=== PATIENT | male | born 1995 | race Two or more races ===

== ENCOUNTER 2017-12-23 22:49 | Inpatient (IN) | payer OTHER ==
--- NOTE | 2017-12-23 23:04 | ER Report ---
History and Physical Time Seen By MD: 23:04 Hx. of Stated Complaint: PT HAS FEVER, AUDIBLE CRACKLES, SOB. HPI/ROS CHIEF COMPLAINT: fever, trouble breathing HISTORY OF PRESENT ILLNESS: This is a 22 year old male. He has been sick for about 4 days. Started with fever, then cough and shortness of breath. Feels very week. Having pink sputum tonight. Heart racing. No chest pain, but tight breathing. Took Tylenol this morning, but none recently. No sick contacts. No travel. No unusual exposures. 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 No history of lung problems or infections. REVIEW OF SYSTEMS: Constitutional: As above. Eyes: No vision changes. ENT: Mild sore throat. Some nasal congestion. Cardiovascular: No chest pain. Respiratory: As above. Gastrointestinal: No abdominal pain. Some nausea. No diarrhea or constipation. No blood in stool. Genitourinary: No dysuria or blood in urine. Musculoskeletal: Having some musculoskeletal aches. Skin: No rashes. Neurological: No numbness. Has some dizziness. Allergies: Coded Allergies: No Known Drug Allergies (Unverified , 12/23/17) Home Meds No Active Prescriptions or Reported Meds Past Medical/Surgical History Negative Reviewed Nurses Notes: Yes Hx Substance Use Disorder: No Hx Alcohol Use: No Constitutional Vital Sign - Last 24 Hours 12/23/17 12/23/17 12/23/17 12/23/17 22:54 22:58 23:00 23:04 Temp 102.7 Pulse 154 149 Resp 26 29 B/P (MAP) 148/98 (115) 148/98 129/88 (102) Pulse Ox 80 92 O2 Delivery Room Air 12/23/17 12/23/17 12/23/17 12/23/17 23:19 23:36 23:41 23:56 Pulse 145 149 146 Resp 37 44 39 B/P (MAP) 147/86 (106) Pulse Ox 92 86 93 12/24/17 12/24/17 12/24/17 12/24/17 00:00 00:11 00:26 00:30 Pulse 145 138 Resp 45 26 B/P (MAP) 141/94 (110) 136/102 (113) Pulse Ox 94 95 12/24/17 12/24/17 00:32 00:37 Pulse 138 139 Resp 38 Pulse Ox 95 Physical Exam General Appearance: The patient is alert. He is having some respiratory distress. Ill appearing and does appear toxic with tachycardia, tachypnea and fever. Eyes: Pupils are equal, round. No pallor, injection or icterus. ENT: Mucous membranes are moist. Normal oral mucosa. Posterior oropharynx is normal. Neck: Supple and non tender. No lymphadenopathy. Respiratory: Increased work of breathing. Breathing with loud wet rattling sounds even without auscultation. Auscultation reveals loud, wet rhonchi and rales. No wheezing. Hypoxia which improves with oxygen administration. Started at 80% on room air. Cardiovascular: Regular rate and rhythm. Difficult to hear heart sounds with loud breathing, but did not appreciate any murmurs, gallops or rubs. No edema. Gastrointestinal: Abdomen is soft and non tender. Nondistended. Normal active bowel sounds. Neurological: Alert and oriented x3. No focal neurologic deficits Skin: Warm and dry. Musculoskeletal: Full range of motion, no discrete tenderness. DIFFERENTIAL DIAGNOSIS: After history and physical exam, differential diagnosis was considered for shortness of breath including but not limited to sepsis, pulmonary infectious process, viral process such as influenza. Less likely cardiac problems. Medical Decision Making Data Points Result Diagram: 12/23/17 2310 12/23/17 2310 Laboratory Hematology Test 12/23/17 23:10 12/23/17 23:40 Red Blood Count 4.75 M/uL (4.00-5.60) Mean Corpuscular Volume 90.1 fL (80.0-96.0) Mean Corpuscular Hemoglobin 31.3 pg (26.0-33.0) Mean Corpuscular Hemoglobin Concent 34.8 g/dL (32.0-36.0) Red Cell Distribution Width 12.4 % (11.5-14.5) Mean Platelet Volume 7.7 fL (7.2-11.1) Neutrophils (%) (Auto) % (39.4-72.5) Lymphocytes (%) (Auto) % (17.6-49.6) Monocytes (%) (Auto) % (4.1-12.4) Eosinophils (%) (Auto) % (0.4-6.7) Basophils (%) (Auto) % (0.3-1.4) Nucleated RBC Relative Count (auto) /100WBC Neutrophils # (Auto) K/uL (2.0-7.4) Lymphocytes # (Auto) K/uL (1.3-3.6) Monocytes # (Auto) K/uL (0.3-1.0) Eosinophils # (Auto) K/uL (0.0-0.5) Basophils # (Auto) K/uL (0.0-0.1) Nucleated RBC Absolute Count (auto) K/uL Neutrophils % (Manual) 73 % (39.4-72.5) Band Neutrophils % 8 % Lymphocytes % (Manual) 3 % (17.6-49.6) Atypical Lymphocytes % 1 % Monocytes % (Manual) 13 % (4.1-12.4) Eosinophils % (Manual) 0 % (0.4-6.7) Basophils % (Manual) 0 % (0.3-1.4) Metamyelocytes % 1 % Myelocytes % 1 % Peripheral Blood Smear Yes Y/N Sodium Level 125 mmol/L (137-145) Potassium Level 3.3 mmol/L (3.5-5.0) Chloride Level 89 mmol/L (98-107) Carbon Dioxide Level 23 mmol/L (22-30) Blood Urea Nitrogen 8 mg/dl (9-21) Creatinine 0.90 mg/dl (0.66-1.25) Glomerular Filtration Rate Calc > 60.0 Random Glucose 221 mg/dl (75-110) Calcium Level 8.0 mg/dl (8.4-10.2) Total Bilirubin 1.1 mg/dl (0.2-1.3) Aspartate Amino Transf (AST/SGOT) 78 U/L (0-35) Alanine Aminotransferase (ALT/SGPT) 58 U/L (0-56) Alkaline Phosphatase 59 U/L (0-126) Total Protein 6.4 gm/dl (6.3-8.2) Albumin 3.5 g/dl (3.5-5.0) Urine Color Yellow Urine Clarity Clear Urine pH 6.0 pH (4.8-9.5) Urine Specific [place] 1.021 Urine Protein 100 mg/dL (NEGATIVE) Urine Glucose (UA) 500 mg/dL (NEGATIVE) Urine Ketones Negative mg/dL (NEGATIVE) Urine Blood Moderate (NEGATIVE) Urine Nitrite Negative (NEGATIVE) Urine Bilirubin Negative (NEGATIVE) Urine Urobilinogen 4.0 mg/dL (0.2-1.9) Urine Leukocyte Esterase Negative (NEGATIVE) Urine RBC None /HPF (0-2/HPF) Urine WBC 2 /HPF (0-5/HPF) Urine Squamous Epithelial Cells None /LPF (</=FEW) Urine Bacteria Negative /HPF (NONE-FEW) Urine Mucus None /HPF (NONE-FEW) Influenza Virus Type A (PCR) Positive (NEGATIVE) Influenza Virus Type B (PCR) Negative (NEGATIVE) Chemistry Test 12/23/17 23:10 12/23/17 23:40 White Blood Count 6.5 k/uL (4.5-11.0) Red Blood Count 4.75 M/uL (4.00-5.60) Hemoglobin 14.9 g/dL (14.0-18.0) Hematocrit 42.8 % (42.0-52.0) Mean Corpuscular Volume 90.1 fL (80.0-96.0) Mean Corpuscular Hemoglobin 31.3 pg (26.0-33.0) Mean Corpuscular Hemoglobin Concent 34.8 g/dL (32.0-36.0) Red Cell Distribution Width 12.4 % (11.5-14.5) Platelet Count 181 K/uL (150-450) Mean Platelet Volume 7.7 fL (7.2-11.1) Neutrophils (%) (Auto) % (39.4-72.5) Lymphocytes (%) (Auto) % (17.6-49.6) Monocytes (%) (Auto) % (4.1-12.4) Eosinophils (%) (Auto) % (0.4-6.7) Basophils (%) (Auto) % (0.3-1.4) Nucleated RBC Relative Count (auto) /100WBC Neutrophils # (Auto) K/uL (2.0-7.4) Lymphocytes # (Auto) K/uL (1.3-3.6) Monocytes # (Auto) K/uL (0.3-1.0) Eosinophils # (Auto) K/uL (0.0-0.5) Basophils # (Auto) K/uL (0.0-0.1) Nucleated RBC Absolute Count (auto) K/uL Neutrophils % (Manual) 73 % (39.4-72.5) Band Neutrophils % 8 % Lymphocytes % (Manual) 3 % (17.6-49.6) Atypical Lymphocytes % 1 % Monocytes % (Manual) 13 % (4.1-12.4) Eosinophils % (Manual) 0 % (0.4-6.7) Basophils % (Manual) 0 % (0.3-1.4) Metamyelocytes % 1 % Myelocytes % 1 % Peripheral Blood Smear Yes Y/N Glomerular Filtration Rate Calc > 60.0 Calcium Level 8.0 mg/dl (8.4-10.2) Total Bilirubin 1.1 mg/dl (0.2-1.3) Aspartate Amino Transf (AST/SGOT) 78 U/L (0-35) Alanine Aminotransferase (ALT/SGPT) 58 U/L (0-56) Alkaline Phosphatase 59 U/L (0-126) Total Protein 6.4 gm/dl (6.3-8.2) Albumin 3.5 g/dl (3.5-5.0) Urine Color Yellow Urine Clarity Clear Urine pH 6.0 pH (4.8-9.5) Urine Specific [place] 1.021 Urine Protein 100 mg/dL (NEGATIVE) Urine Glucose (UA) 500 mg/dL (NEGATIVE) Urine Ketones Negative mg/dL (NEGATIVE) Urine Blood Moderate (NEGATIVE) Urine Nitrite Negative (NEGATIVE) Urine Bilirubin Negative (NEGATIVE) Urine Urobilinogen 4.0 mg/dL (0.2-1.9) Urine Leukocyte Esterase Negative (NEGATIVE) Urine RBC None /HPF (0-2/HPF) Urine WBC 2 /HPF (0-5/HPF) Urine Squamous Epithelial Cells None /LPF (</=FEW) Urine Bacteria Negative /HPF (NONE-FEW) Urine Mucus None /HPF (NONE-FEW) Influenza Virus Type A (PCR) Positive (NEGATIVE) Influenza Virus Type B (PCR) Negative (NEGATIVE) Urinalysis Test 12/23/17 23:40 Urine Color Yellow Urine Clarity Clear Urine pH 6.0 pH (4.8-9.5) Urine Specific [place] 1.021 Urine Protein 100 mg/dL (NEGATIVE) Urine Glucose (UA) 500 mg/dL (NEGATIVE) Urine Ketones Negative mg/dL (NEGATIVE) Urine Blood Moderate (NEGATIVE) Urine Nitrite Negative (NEGATIVE) Urine Bilirubin Negative (NEGATIVE) Urine Urobilinogen 4.0 mg/dL (0.2-1.9) Urine Leukocyte Esterase Negative (NEGATIVE) Urine RBC None /HPF (0-2/HPF) Urine WBC 2 /HPF (0-5/HPF) Urine Squamous Epithelial Cells None /LPF (</=FEW) Urine Bacteria Negative /HPF (NONE-FEW) Urine Mucus None /HPF (NONE-FEW) Microbiology Microbiology Date/Time Source Procedure Growth Status 12/23/17 23:43 Sputum Gram Stain - Final Resulted 12/23/17 23:43 Sputum Sputum Culture Pending Resulted EKG/Imaging Imaging CHEST: Indication: Fever and hypoxia. Technique: Frontal and lateral views were obtained. Comparison: None. Skeletal and soft tissue structures: Intact and unremarkable. Heart and mediastinum: Within normal limits. Lung boles: There are ill-defined parenchymal opacities in both lower lung boles, left worse than right, compatible with acute pneumonia. No focal consolidation or volume loss is identified. Pleural spaces: There is no evidence of effusion or pneumothorax. Impression: There are ill-defined opacities in both lower lung boles, left worse than right, compatible with acute pneumonia. Report Dictated By: Onofre Garduno MD at 12/23/2017 11:45 PM ED Course/Re-evaluation Clinical Indication for ER IV: Hydration, IV Access ED Course After initial evaluation, it was clear that the patient was very sick. IV was started. He was started on oxygen. A liter of normal saline given. Tylenol 1000mg given oral dose. Patient slowly improving. Imaging as noted above with multifocal infiltrates in the bases, left worse than right. Influenza A was positive. Sodium very low at 125 and Potassium was 3.3. Lactate normal. White count normal but with slight left shift. Blood cultures obtained. Sputum culture and gram stain obtained as well. Started on Rocephin, Azithromycin, and Tamiflu. Second liter of normal saline started at 200cc/hr. Discussed with Dr. Kelley and admitted initially to the ICU. Decision to Disposition Date: Dec 24, 2017 Decision to Disposition Time: 00:24 Depart Departure Latest Vital Signs Vital Signs Date Time Temp Pulse Resp B/P (MAP) Pulse Ox O2 Delivery O2 Flow Rate FiO2 12/24/17 00:37 139 38 95 12/24/17 00:30 136/102 (113) 12/23/17 22:58 102.7 Room Air Impression: Primary Impression: Pneumonia Additional Impressions: Influenza A Hyponatremia Condition: Condition Unchanged Disposition: Admitted from ER New Scripts No Active Prescriptions or Reported Meds Problem Qualifiers Primary Impression: Pneumonia Pneumonia type: due to unspecified organism Laterality: bilateral Lung location: lower lobe of lung Qualified Codes: J18.1 - Lobar pneumonia, unspecified organism MARCUS FRANCISCO MD Dec 23, 2017 23:04
[2017-12-23 23:25] LABS: PLATELET COUNT, AUTOMATED 181 K/uL (150-450)
[2017-12-23] MEDS ORDERED: NS(*) 0.9% 1000 ML BAG 1,000 ML IV ONE (23:30)
[2017-12-23] MEDS ORDERED: ACETAMINOPHEN 500 MG TAB PO ONE (23:40)
--- NOTE | 2017-12-23 23:51 | RADIOLOGY IMAGING REPORT ---
FACILITY: [facility] - [place], [place] PATIENT NAME: Will Madison : 1995 MR: [id number] V: [id number] EXAM DATE: ORDERING PHYSICIAN: MARCUS FRANCISCO TECHNOLOGIST: Location: [facility] Patient: Will Madison : 1995 Visit/Account:[id number] Date of Sevice: 12/23/2017 CHEST: Indication: Fever and hypoxia. Technique: Frontal and lateral views were obtained. Comparison: None. Skeletal and soft tissue structures: Intact and unremarkable. Heart and mediastinum: Within normal limits. Lung boles: There are ill-defined parenchymal opacities in both lower lung boles, left worse than r ight, compatible with acute pneumonia. No focal consolidation or volume loss is identified. Pleural spaces: There is no evidence of effusion or pneumothorax. Impression: There are ill-defined opacities in both lower lung boles, left worse than right, compati ble with acute pneumonia. Report Dictated By: Onofre Garduno MD at 12/23/2017 11:45 PM Report E-Signed By: Onofre Garduno MD at 12/23/2017 11:47 PM WSN:[id number]
[2017-12-24] VITALS (19 sets, daily range): BP systolic 92–196; BP diastolic 49–136
[2017-12-24] MEDS ORDERED: AZITHROMYCIN(*) 500 MG 500 MG in NS(*) 0.9% 250 ML BAG 250 ML IVPB ONE (00:30)
[2017-12-24] MEDS ORDERED: OSELTAMIVIR PHOS 75 MG CAP PO ONE (00:30)
[2017-12-24] MEDS ORDERED: cefTRIAXone(*) 1 GM VIAL 1 GM in NS(*) 0.9% 100 ML ADDVANT BAG 100 ML IVPB ONE (00:30)
[2017-12-24] MEDS ORDERED: NS(*) 0.9% 1000 ML BAG 1,000 ML IV ONE (00:40)
[2017-12-24] MEDS ORDERED: INFLUENZA VIRUS VAC 0.5 ML SYR IM ONLY ONE (03:10)
[2017-12-24] MEDS ORDERED: ALBUTEROL 2.5 MG/3 ML NEB NEB PRN (03:10)
[2017-12-24] MEDS ORDERED: CODEINE SULFATE 30 MG TAB PO PRN (03:10)
--- NOTE | 2017-12-24 03:22 | History & Physical ---
History of Present Illness Chief Complaint Fever and shortness of breath History of Present Illness This patient presented to the emergency room complaining of fever and shortness of breath. He started to get sick 4 days ago and has progressively gotten worse. Over the last 24hrs he has also developed a cough productive of pink frothy sputum. History Problems: (1) No significant medical problems Home Meds No Active Prescriptions or Reported Meds Allergies: Coded Allergies: No Known Drug Allergies (Unverified , 12/23/17) Hx Alcohol Use: No Review of Systems All Systems Reviewed/Normal: Yes, Except as Noted Constitutional: Fever Respiratory: Shortness of Breath, Cough Exam Vital Signs Vital Signs Date Time Temp Pulse Resp B/P (MAP) Pulse Ox O2 Delivery O2 Flow Rate FiO2 12/24/17 01:43 4.0 12/24/17 01:40 99.3 12/24/17 01:37 128 93 12/24/17 01:30 120/83 (95) 12/24/17 00:37 38 12/23/17 22:58 Room Air Neuro: No Gross deficits Eyes: PERRLA Cardiovascular: Regular Rate and Rhythm Respiratory: Other (Crackles and rhochi bilateral.) GI: Abd Soft and Non-Tender Extremities: No Edema Integumentary: No Cyanosis Medical Decision Making Data Points Result Diagram: 12/23/17 2310 12/23/17 2310 EKG / Imaging Imaging Chest x-ray reviewed. Assessment and Plan Problems: (1) Bacterial pneumonia Assessment & Plan: He did present with fever and shortness of breath. His chest x-ray did show bilateral multifocal infiltrates. He has been started on empiric treatment with ceftriaxone and azithromycin. Blood and sputum cultures are pending. (2) Influenza A Status: Acute Assessment & Plan: He did test positive for influenza A. We have started him on Tamiflu. (3) Sepsis Assessment & Plan: He does have tachycardia and a bandemia. A lactate is pending. He received a bolus of fluids in the emergency room and we are running him on maintenance fluids. (4) Hyponatremia Status: Acute Assessment & Plan: He has been started on a saline infusion as above. Venous Thromboembolism Antithrombotics Is Pt On Any Antithrombotics?: No Exam Sepsis Risk: Possible Sepsis Risk PRISCILLA ESPARZA DO Dec 24, 2017 03:22
[2017-12-24] MEDS ORDERED: NS(*) 0.9% 1000 ML BAG 1,000 ML IV PRN (05:39)
[2017-12-24] MEDS ORDERED: ACETAMINOPHEN 500 MG TAB PO PRN (06:00)
--- NOTE | 2017-12-24 06:46 | RADIOLOGY IMAGING REPORT ---
FACILITY: [facility] PATIENT NAME: Will Madison : 1995 MR: [id number] V: [id number] EXAM DATE: ORDERING PHYSICIAN: PRISCILLA ESPARZA TECHNOLOGIST: Location: [facility] - [place] Patient: Will Madison : 1995 Visit/Account:[id number] Date of Sevice: 12/24/2017 CHEST SINGLE AP Indication: Shortness of breath.. Comparison: December 23, 2017. Findings: Heart size within normal limits. Multifocal perihilar opacities, progressed since prior exam. Mild bronchial wall thickening. No pneumothorax or pleural effusion. IMPRESSION: 1. Progressing multifocal pulmonary opacities concerning for multifocal pneumonia. Report Dictated By: Micah Gomez MD at 12/24/2017 6:42 AM Report E-Signed By: Micah Gomez MD at 12/24/2017 6:43 AM WSN:[id number]
[2017-12-24] MEDS ORDERED: KETAMINE HCL 500 MG/5 ML VIAL ONE (07:45)
[2017-12-24] MEDS ORDERED: SUCCINYLCHOL CHL 200MG/10ML VL IVP ONE (08:01)
[2017-12-24] MEDS ORDERED: MIDAZOLAM 50 MG/10 ML 1ML VIAL 100 MG in NS(*) 0.9% 100 ML BAG 80 ML IV PRN (08:08)
[2017-12-24] MEDS: PROPOFOL(*)1000 MG/100 ML VIAL 100 ML IV PRN ×3 (08:09→10:52)
--- NOTE | 2017-12-24 08:14 | ER Inpatient Procedure ---
Inpatient Procedure Procedure: Rapid sequence intubation. I was consult by Dr. Alyssa Frazier to come and evaluate the patient and the ICU who appears to be in acute respiratory failure. Patient was admitted last evening with pneumonia and influenza. He is currently on a trial of BiPAP but is breathing in excess of 40 times a minute with accessory muscle use and abdominal breathing. It is my opinion that the patient is in acute respiratory failure and requires secure her airway and intubation on a ventilator. Indication for the procedure was airway protection and respiratory failure]. The patient was preoxygenated with 100% oxygen by face mask. The patient was given the following IV medications: 120 mg of ketamine followed by 100 mg of succinylcholine. The patient was orally endotracheally intubated under direct visualization with a 8.0 ETT. Tracheal intubation was confirmed with misting on the tube; breath sounds were auscultated equally bilaterally; appropriate color change with [place] CO2 detector. ET tube secured at 26 cm at the teeth. Chest X-ray shows ETT in good position. The procedure was performed by myself. NU AKHTAR MD Dec 24, 2017 08:14
[2017-12-24] MEDS ORDERED: VANCOMYCIN(*) 1 GM VIAL 1 GM, VANCOMYCIN (*) 0.5 GM VIAL 0.2 GM in NS(*) 0.9% 250 ML BA... IVPB SCH (08:15)
[2017-12-24] MEDS ORDERED: MIDAZOLAM 2 MG/2 ML VIAL IVP ONE (08:17)
--- NOTE | 2017-12-24 08:39 | Miscellaneous Provider Note ---
Miscellaneous Provider Note Note Called to see patient with increased respiratory rate and O2 requirements. Patient's respiratory rate near 40. He was using accessory muscles to breath and was in significant respiratory distress. Repeat CXR showed worseing bilateral infiltrates compared with admission CXR. Discussed intubation with the patient and he was agreeable. Dr. Ramirez intubated the patient in ICU. ET tube adjusted and in good position. OG tube placed as well and is in good position also. Will call surgery for Central line. Currently able to oxygenate the patient. BP is fine. Heart rate is high due to need to adjust sedation and get him comfortable. NEDA CHOU MD Dec 24, 2017 08:39
[2017-12-24] MEDS ORDERED: OSELTAMIVIR PHOS 75 MG CAP PO SCH (09:00)
[2017-12-24] MEDS ORDERED: ORAL SUCTION/CHLORHX/SWAB KIT MT SCH ×2 (09:00)
--- NOTE | 2017-12-24 09:01 | RADIOLOGY IMAGING REPORT ---
FACILITY: [facility] PATIENT NAME: Will Madison : 1995 MR: [id number] V: [id number] EXAM DATE: ORDERING PHYSICIAN: NEDA CHOU TECHNOLOGIST: Location: [facility] - [place] Patient: Will Madison : 1995 Visit/Account:[id number] Date of Sevice: 12/24/2017 EXAMINATION: Portable AP Chest 12/24/2017 8:05 AM HISTORY: Intubated, OG tube. COMPARISON: 12/24/2017 FINDINGS: Cardiomediastinal contours: Interval intubation. Endotracheal tube tip is only about 1.5 cm above the han. Nasogastric tube also now in place with the tip injecting over the gastric antrum. Heart siz e is unchanged. Lungs and pleura: Extensive patchy bilateral pulmonary infiltrates with a fairly similar distribution , possibly mildly increased in density in the right base. No substantial effusion. Bones/soft tissues: Normal Cardiac leads are present. IMPRESSION: 1. Interval intubation. Endotracheal tube tip is only about 1.5 cm above the han. 2. Extensive bilateral pulmonary infiltrates are probably slightly worsened. Report Dictated By: Deyvi Benavidez MD at 12/24/2017 8:53 AM Report E-Signed By: Deyvi Benavidez MD at 12/24/2017 8:55 AM WSN:[id number]
[2017-12-24] MEDS ORDERED: NS 0.9% ONE (09:14)
[2017-12-24] MEDS ORDERED: NS(*) 0.9% 500 ML BAG 500 ML IV PRN (09:25)
[2017-12-24] MEDS ORDERED: ACETAMINOPHEN(*)1000 MG/100 ML 100 ML IVPB PRN (09:35)
--- NOTE | 2017-12-24 09:39 | Procedure Note ---
Central Line Procedure Note Indication for Central Line: IV fluids, IV medications Consent Signed: Yes Central Line Lumen: Triple Central Line Procedure: Chlorhexidine Prep, Sterile Drapes Applied, Sterile Dressing Applied Central Line Position: R Internal Jugular Anesthesia Used: 1% Lidocaine CC's of Anesthesia: 3 Complications: None Central Line Post Position: Sutured, Confirmed Blood Return, Position Confirmed w/CXR PRISCILLA LLAMAS MD Dec 24, 2017 09:39
--- NOTE | 2017-12-24 10:06 | RADIOLOGY IMAGING REPORT ---
FACILITY: [facility] PATIENT NAME: Will Madison : 1995 MR: [id number] V: [id number] EXAM DATE: ORDERING PHYSICIAN: PRISCILLA LLAMAS TECHNOLOGIST: Location: [facility] - [place] Patient: Will Madison : 1995 Visit/Account:[id number] Date of Sevice: 12/24/2017 Single view of the chest Indication: Central line placement. Comparison: X-ray examination of the chest December 24, 2017 Findings: Lateral portion left hemithorax is not included. Persistent bilateral interstitial and alveolar infil trates. As seen on prior exam, endotracheal tube is in the distal thoracic trachea, approximately 2.5 cm from the han. Right IJ catheter terminates in midportion superior vena cava. IMPRESSION: 1. Right IJ catheter terminates in midportion superior vena cava. Otherwise, unchanged. Report Dictated By: Hiren Corley MD at 12/24/2017 10:01 AM Report E-Signed By: Hiren Corley MD at 12/24/2017 10:03 AM WSN:[id number]
--- NOTE | 2017-12-24 10:07 | Miscellaneous Provider Note ---
Miscellaneous Provider Note Note Patient intubated and is on 100% oxygen. Central line in place. Radiologist notes infiltrates are a bit worse than his earlier film today. He was easily intubated without obvious trauma but is having a lot of pink frothy sputum. Discussed with the patient's family and they would feel more comfortable having this patient where he could have appropriate specialists involved in his care. Called [facility] and there was concern that they could not provide everything this patient might need and recommended UC. Called the UC transfer line and the patient was accepted by delimer Dr. Perry. He asked that the patient be transferred promptly by air. Arrangements are being made. NEDA CHOU MD Dec 24, 2017 10:07
--- NOTE | 2017-12-24 10:22 | Hospitalist Depart ---
Discharge Summary Reason for Hosp/Final Diag: (1) Bacterial pneumonia Hospital Course & Plan: The patient presented with fever and shortness of breath. His chest x-ray showed bilateral multifocal infiltrates. He was started on empiric treatment with ceftriaxone and azithromycin. Blood and sputum cultures were obtained. Vancomycin was added to cover Staph. The patient had progressive increased work of breathing. BiPAP was used for a short duration but the patient could not tolerate it. He was intubated and sedated. The intubation was uneventful but the patient was noted to have a lot of pink frothy sputum post intubation. Repeat CXR showed the ET tube and OG tube to be in good place but the infiltrates had progressed from a CXR done a few hours earlier. There was concern for development of ARDS. This was discussed with the patient's family. They agreed with transfer to a facility with higher level of care including pulmonary medicine and intensive care physicians. Dr. Perry at the [facility] accepted the patient in transfer and arrangements were made for transfer by helicopter. (2) Influenza A Status: Acute Hospital Course & Plan: The patient tested positive for influenza A. He was started on Tamiflu. (3) Sepsis Hospital Course & Plan: The patient was tachycardic and had a significant bandemia. A lactate was normal. He received a bolus of fluids in the emergency room and was continued on maintenance fluids in the ICU until his transfer. (4) Hyponatremia Status: Acute Hospital Course & Plan: He was started on a saline infusion as above. Departure Weight (Pounds): 140 Result Diagram: 12/23/17230912/23/172309 Item Value Date Time Lactate 1.9 mmol/L 12/23/172309 Lactate 1.5 mmol/L 12/24/17 0345 Calcium Level 8.0 mg/dl L 12/23/172309 Total Bilirubin 1.1 mg/dl 12/23/172309 Aspartate Amino Transf (AST/SGOT) 78 U/L H 12/23/172309 Alanine Aminotransferase (ALT/SGPT) 58 U/L H 12/23/172309 Alkaline Phosphatase 59 U/L 12/23/172309 Total Protein 6.4 gm/dl 12/23/172309 Albumin 3.5 g/dl 12/23/172309 Neutrophils % (Manual) 73 % H 3/10/18 2310 Band Neutrophils % 8 % 12/23/172309 Lymphocytes % (Manual) 3 % L 12/23/172309 Atypical Lymphocytes % 1 % 12/23/172309 Monocytes % (Manual) 13 % H 12/23/172309 Eosinophils % (Manual) 0 % L 12/23/172309 Basophils % (Manual) 0 % L 12/23/172309 Metamyelocytes % 1 % 12/23/172309 Myelocytes % 1 % 12/23/172309 Peripheral Blood Smear Yes Y/N 12/23/172309 Urine Color Yellow 12/23/172339 Urine Clarity Clear 12/23/172339 Urine pH 6.0 pH 12/23/172339 Urine Specific Kendall 1.021 12/23/172339 Urine Protein 100 mg/dL 12/23/172339 Urine Glucose (UA) 500 mg/dL 12/23/172339 Urine Ketones Negative mg/dL 12/23/172339 Urine Blood Moderate 12/23/172339 Urine Nitrite Negative 12/23/172339 Urine Bilirubin Negative 12/23/172339 Urine Urobilinogen 4.0 mg/dL H 12/23/172339 Urine Leukocyte Esterase Negative 12/23/172339 Urine RBC None /HPF 12/23/172339 Urine WBC 2 /HPF 12/23/172339 Urine Squamous Epithelial Cells None /LPF 12/23/172339 Urine Bacteria Negative /HPF 12/23/172339 Urine Mucus None /HPF 12/23/172339 Influenza Virus Type A (PCR) Positive 12/23/172339 Influenza Virus Type B (PCR) Negative 12/23/172339 [facility] *LIVE* [address] [place] [address] CHIQUITA SOLIZ M.D., DIRECTOR OF LABORATORY SERVICES GLORY SPAIN M.D., PATHOLOGIST RUN DATE: 12/24/17 Specimen Inquiry Report PAGE 1 RUN TIME: 0822 PATIENT: ANGEL SAXENA ACCT: [id number] LOC: ICU U : [id number] AGE/SX: 22/M ROOM: 2261 REG : 12/24/[address]: PRISCILLA ESPARZA DO : 1995 BED: 261 DIS : STATUS: ADM IN TLOC: SPEC #: [id number] THEO: 12/24/17-UNK STATUS: RES REQ #: [id number] RECD: 12/24/[address] [facility] [address]: MARCUS FRANCISCO MD SOURCE: CCMS ENTR: 12/24/[address]: SPDESC: ORDERED: CULT URINE Procedure Result Verified URINE CULTURE Preliminary 12/24/17 NO GROWTH SO FAR, SET LATE. REINCUBATED [facility] *LIVE* [address] [place] [address] CHIQUITA SOLIZ M.D., DIRECTOR OF LABORATORY SERVICES GLORY SPAIN M.D., PATHOLOGIST RUN DATE: 12/24/17 Specimen Inquiry Report PAGE 1 RUN TIME: 821 PATIENT: ANGEL SAXENA ACCT: [id number] LOC: ICU U : [id number] AGE/SX: 22/M ROOM: [facility] REG : 12/24/[address]: PRISCILLA ESPARZA DO : 1995 BED: 261 DIS : STATUS: ADM IN TLOC: SPEC #: [id number] THEO: 12/23/17 STATUS: RES REQ #: [id number] RECD: 12/23/[address]: MARCUS FRANCISCO MD SOURCE: SPUTUM ENTR: 12/23/[address]: JUJUC: ORDERED: CULT SPUTUM/GS Procedure Result Verified GRAM STAIN Final 12/24/17-0 2+ GRAM POSITIVE COCCI IN CHAINS 2+ GRAM POSITIVE COCCI IN CLUSTERS MODERATE WHITE BLOOD CELLS RARE EPITHELIAL CELLS SPUTUM CULTURE Preliminary 12/24/17 NORMAL SO FAR, CULTURE SET UP LATE, CULTURE REINCUBATED Imaging FACILITY: [facility] PATIENT NAME: Angel Saxena : 1995 MR: [id number] V: [id number] EXAM DATE: ORDERING PHYSICIAN: NEDA CHOU TECHNOLOGIST: Location: [facility] [place] Patient: Angel Saxena : 1995 Visit/Account:[id number] Date of Sevice: 12/24/2017 EXAMINATION: Portable AP Chest 12/24/2017 8:05 AM HISTORY: Intubated, OG tube. COMPARISON: 12/24/2017 FINDINGS: Cardiomediastinal contours: Interval intubation. Endotracheal tube tip is only about 1.5 cm above the han. Nasogastric tube also now in place with the tip injecting over the gastric antrum. Heart size is unchanged. Lungs and pleura: Extensive patchy bilateral pulmonary infiltrates with a fairly similar distribution, possibly mildly increased in density in the right base. No substantial effusion. Bones/soft tissues: Normal Cardiac leads are present. IMPRESSION: 1. Interval intubation. Endotracheal tube tip is only about 1.5 cm above the han. 2. Extensive bilateral pulmonary infiltrates are probably slightly worsened. Report Dictated By: Deyvi Benavidez MD at 12/24/2017 8:53 AM Report E-Signed By: Deyvi Benavidez MD at 12/24/2017 8:55 AM WSN:-[id number] FACILITY: [facility] PATIENT NAME: Angel Saxena : 1995 MR: [id number] V: [id number] EXAM DATE: [id number] ORDERING PHYSICIAN: PRISCILLA ESPARZA TECHNOLOGIST: Location: [facility] [place] Patient: Angel Saxena : 1995 Visit/Account:[id number] Date of Sevice: 12/24/2017 CHEST SINGLE AP Indication: Shortness of breath.. Comparison: December 23, 2017. Findings: Heart size within normal limits. Multifocal perihilar opacities, progressed since prior exam. Mild bronchial wall thickening. No pneumothorax or pleural effusion. IMPRESSION: 1. Progressing multifocal pulmonary opacities concerning for multifocal pneumonia. Report Dictated By: Micah Gomez MD at 12/24/2017 6:42 AM Report E-Signed By: Micah Gomez MD at 12/24/2017 6:43 AM WSN:-[id number] FACILITY: [facility] PATIENT NAME: Angel Saxena : 1995 MR: [id number] V: [id number] EXAM DATE: [id number] ORDERING PHYSICIAN: MARCUS FRANCISCO TECHNOLOGIST: Location: [facility] [place] Patient: Angel Saxena : 1995 Visit/Account:[id number] Date of Sevice: 12/23/2017 CHEST: Indication: Fever and hypoxia. Technique: Frontal and lateral views were obtained. Comparison: None. Skeletal and soft tissue structures: Intact and unremarkable. Heart and mediastinum: Within normal limits. Lung boles: There are ill-defined parenchymal opacities in both lower lung boles, left worse than right, compatible with acute pneumonia. No focal consolidation or volume loss is identified. Pleural spaces: There is no evidence of effusion or pneumothorax. Impression: There are ill-defined opacities in both lower lung boles, left worse than right, compatible with acute pneumonia. Report Dictated By: Onofre Garduno MD at 12/23/2017 11:45 PM Report E-Signed By: Onofre Garduno MD at 12/23/2017 11:47 PM WSN:[id number] Condition: Critical Discharge: Another Hospital Time Spent: < 30 min Discharge Instructions Home Meds No Active Prescriptions or Reported Meds Special Instructions: The patient has been accepted by Dr. Perry at the [facility] and will be transferred to the MICU there. Venous Thromboembolism Antithrombotics Is Pt On Any Antithrombotics?: No NEDA CHOU MD Dec 24, 2017 10:21
[2017-12-24] MEDS ORDERED: NS(*) 0.9% 250 ML BAG 250 ML ONE (11:08)
[2017-12-24] MEDS ORDERED: cefTRIAXone 2 GM VIAL IVP SCH (21:00)
[2017-12-24] MEDS ORDERED: AZITHROMYCIN(*) 500 MG 500 MG in NS(*) 0.9% 250 ML BAG 250 ML IVPB SCH (22:00)
== END 2017-12-24 11:29 | disposition short-term general hospital (02) | DRG 871 ==
LOC: ER 23:00 → ICU 12-24 00:42
PROVIDERS: ADMIT Family Medicine; ATTEND Family Medicine
PROC: 5A1935Z Respiratory Ventilation, Less than 24 Consecutive Hours (ICD-10-PCS; principal; 2017-12-24)
PROC: 0BH17EZ Insertion of Endotracheal Airway into Trachea, Via Natural or Artificial Opening (ICD-10-PCS; 2017-12-24)
PROC: 02HV33Z Insertion of Infusion Device into Superior Vena Cava, Percutaneous Approach (ICD-10-PCS; 2017-12-24)
DX: A41.9 Sepsis, unspecified organism (principal); J15.9 Unspecified bacterial pneumonia; J10.08 Influenza due to other identified influenza virus with other specified pneumonia; J80 Acute respiratory distress syndrome; E87.1 Hypo-osmolality and hyponatremia
CPT/HCPCS: 36415; 71045; 71046; 81001; 82040; 82247; 82310; 82374; 82435; 82565; 82947; 83605; 84075; 84132; 84155; 84295; 84450; 84460; 84520; 85025; 87040; 87070; 87077; 87088; 87186; 87205; 87502; 94002; 94640; 94660; 94770; 96361; 96365; 96375; 99285; C1758; J0131; J0330; J0456; J0696; J2250; J2704; J3370; J7030; J7040; J7050; J7613

== ENCOUNTER → 2017-12-24 | Outpatient (REF) | LOC: AMB 10:03 | PROVIDERS: ATTEND Nurse Practitioner | DX: Z02.9 Encounter for administrative examinations, unspecified (principal) ==

== ENCOUNTER → 2018-01-22 | Outpatient (REF) | payer OTHER ==
[2018-01-22 18:34] LABS: PLATELET COUNT, AUTOMATED 418 K/uL (150-450)
== END ==
LOC: ZZSENDIN 18:03
DX: Z79.2 Long term (current) use of antibiotics (principal)
CPT/HCPCS: 82040; 82247; 82310; 82374; 82435; 82565; 82947; 84075; 84132; 84155; 84295; 84450; 84460; 84520; 85025; 85651; 86140

== ENCOUNTER → 2018-01-29 | Outpatient (REF) | payer OTHER ==
[2018-01-29 18:28] LABS: PLATELET COUNT, AUTOMATED 376 K/uL (150-450)
== END ==
PROVIDERS: ATTEND Nurse Practitioner Family
DX: Z79.2 Long term (current) use of antibiotics (principal)
CPT/HCPCS: 82040; 82247; 82310; 82374; 82435; 82565; 82947; 84075; 84132; 84155; 84295; 84450; 84460; 84520; 85025; 85651; 86140

== ENCOUNTER → 2018-02-05 | Outpatient (REF) | payer OTHER ==
[2018-02-05 16:43] LABS: PLATELET COUNT, AUTOMATED 397 K/uL (150-450)
== END ==
LOC: ZZSENDIN 16:13
PROVIDERS: ATTEND Nurse Practitioner Family
DX: A40.3 Sepsis due to Streptococcus pneumoniae (principal); J11.1 Influenza due to unidentified influenza virus with other respiratory manifestations
CPT/HCPCS: 82040; 82247; 82310; 82374; 82435; 82565; 82947; 84075; 84132; 84155; 84295; 84450; 84460; 84520; 85025; 85651; 86140

== ENCOUNTER → 2018-02-12 | Outpatient (REF) | payer OTHER ==
[2018-02-12 17:39] LABS: PLATELET COUNT, AUTOMATED 394 K/uL (150-450)
== END ==
PROVIDERS: ATTEND Nurse Practitioner Family
DX: Z79.2 Long term (current) use of antibiotics (principal)
CPT/HCPCS: 82040; 82247; 82310; 82374; 82435; 82565; 82947; 84075; 84132; 84155; 84295; 84450; 84460; 84520; 85025; 85651; 86140